=== PATIENT | male | born 1995 | race African-American/Black ===

== ENCOUNTER 2018-01-07 19:22 | Emergency (ER) | payer OTHER, SELFPAY ==
[2018-01-07] MEDS ORDERED: MORPHINE 4 MG/ML SYR ONE (19:27)
[2018-01-07] MEDS ORDERED: ONDANSETRON 4 MG/2 ML VIAL ONE (19:27)
[2018-01-07] MEDS ORDERED: HYDROCODONE/APAP 7.5/325 MG TAB ONE (20:39)
--- NOTE | 2018-01-07 20:42 | RAD REPORT ---
EXAM DESCRIPTION: RAD - Knee Left 3 View - 01/07/2018 8:07 pm CLINICAL HISTORY: Left knee pain status post injury FINDINGS: No fracture or dislocation is seen.
--- NOTE | 2018-01-07 21:26 | RAD REPORT ---
EXAM DESCRIPTION: Alvin Miranda Left01/07/2018 9:13 pm CLINICAL HISTORY: Left leg pain status post injury FINDINGS: A mildly to moderately comminuted displaced fracture involves the distal diaphysis of the left fibula No dislocation is seen
--- NOTE | 2018-01-07 21:26 | RAD REPORT ---
EXAM DESCRIPTION: RAD - Ankle Left 3 View -01/07/2018 8:07 pm CLINICAL HISTORY: Left ankle pain status post injury FINDINGS: A mildly to moderately comminuted displaced fracture involves the distal diaphysis of the left fibula No dislocation is seen
--- NOTE | 2018-01-07 21:38 | ER ---
Nurse's Notes [facility] Name: Josh Crocker Age: 22 yrs Sex: Male : 1995 Arrival Date: 01/07/2018 Time: 19:27 Bed 8 Private MD: Diagnosis: Displaced comminuted fracture of shaft of left fibula-Distal Presentation: 01/07 19:20 Presenting complaint: EMS states: that pt was playing football and someone fell on his left ankle. A bystander from the [employer] reduced ankle on scene due to no pulse. Pt lower leg is currently in splint. Transition of care: patient was not received from another setting of care. Onset of symptoms was January 07, 2018 at 18:50. Initial Sepsis Screen: Does the patient meet any 2 criteria? No. Patient's initial sepsis screen is negative. Does the patient have a suspected source of infection? No. Patient's initial sepsis screen is negative. Care prior to arrival: IV initiated. 20 GA, in the left antecubital area. 19:20 Method Of Arrival: EMS: [facility] 19:20 Acuity: FAITH 2 Historical: - Allergies: 19:39 No Known Allergies; fc - Home Meds: 19:39 None [Active]; fc - PMHx: 19:39 None; fc - PSHx: 19:39 None; fc - Immunization history:: Last tetanus immunization: unknown. - Social history:: Smoking status: Patient/guardian denies using tobacco, Patient/guardian denies using alcohol, street drugs. Screenin:36 Abuse screen: Denies threats or abuse. Denies injuries from another. Nutritional bp screening: No deficits noted. Tuberculosis screening: No symptoms or risk factors identified. Fall Risk None identified. Assessment: 19:31 General: Appears in no apparent distress. uncomfortable, slender, Behavior is calm, bp cooperative, appropriate for age, RECD 22YO BM VIA EMS S/P SPORTS INJURY. LEFT ANKLE DEFORMITY AFTER FOOTBALL TACKLE. REDUCED IN FIELD BY ON-SITE EMS. LEFT FOOT NEUROVASCULAR INTACT, ABLE TO MOVE DIGITS. Pain: Complains of pain in left medial ankle. Neuro: Level of Consciousness is awake, alert, obeys commands, Oriented to person, place, time, situation, Appropriate for age. Cardiovascular: No deficits noted. Respiratory: Airway is patent Respiratory effort is even, unlabored, Respiratory pattern is regular, symmetrical. GI: No deficits noted. : No signs and/or symptoms were reported regarding the genitourinary system. EENT: No deficits noted. Derm: No deficits noted. Musculoskeletal: Circulation, motion, and sensation intact. Range of motion: limited in left ankle Bony deformity noted of left medial ankle. 20:14 Reassessment: XRAY COMPLETE, RESULTS PENDING. PT REMAINS NEUROVASCULAR INTACT. bp 22:16 Reassessment: PT D/C HOME WITH FAMILY VIA CRUTCHES, DX WITH LEFT FIBULA COMMINUTED bp FRACTURE. Vital Signs: 19:20 BP 127 / 87; Pulse 98; Resp 18; Temp 98.1(O); Pulse Ox 100% on R/A; Weight 90.72 kg fc (R); Height 6 ft. 3 in. (190.50 cm) (R); Pain 7/10; 20:00 BP 125 / 75; Pulse 93; Resp 16; Pulse Ox 97% ; bp 22:00 BP 136 / 76; Pulse 81; Resp 16; Pulse Ox 99% ; bp 19:20 Body Mass Index 25.00 (90.72 kg, 190.50 cm) ED Course: 19:27 Patient arrived in ED. em1 19:28 Alexy Carlton PA is PHCP. cp 19:28 Ancelmo Lu MD is Attending Physician. cp 19:30 Sebastian Faith, CHRISTIAN is Primary Nurse. bp 19:34 Maintain EMS IV. Dressing intact. Good blood return noted. Site clean \T\ dry. Gauge \T\ bp site: 20 GAUGE LEFT AC. 19:36 Patient has correct armband on for positive identification. Bed in low position. Call bp light in reach. Side rails up X2. 19:39 Triage completed. fc 20:00 Arm band placed on. bp 20:08 XRAY Ankle LEFT 3 view In Process Unspecified. EDMS 20:08 XRAY Knee LEFT 3 view In Process Unspecified. EDMS 21:11 X-ray completed. Portable x-ray completed in exam room. Patient tolerated procedure ag1 well. 21:11 XRAY Tib Fib LEFT In Process Unspecified. EDMS 21:30 Orthoglass splint: Posterior short lleg splint applied on left leg. bp 22:17 No provider procedures requiring assistance completed. IV discontinued, intact, bp bleeding controlled, No redness/swelling at site. Pressure dressing applied. Administered Medications: 19:34 Drug: morphine 4 mg Route: IVP; Site: left antecubital; fc 20:37 Follow up: Response: Pain is decreased bp 19:34 Drug: Zofran 4 mg Route: IVP; Site: left antecubital; fc 20:37 Follow up: Response: Pain is decreased bp 20:45 Drug: Hydrocodone-Acetaminophen (7.5 mg-325 mg) 1 tabs Route: PO; bp 21:01 Follow up: Response: Pain is decreased bp Outcome: 21:37 Discharge ordered by MD. cp 22:18 Discharged to home with crutches, with family. bp 22:18 Condition: stable 22:18 Discharge instructions given to patient, Instructed on discharge instructions, follow up and referral plans. medication usage, crutch walking, Demonstrated understanding of instructions, follow-up care, medications, crutch walking, Prescriptions given X 2. 22:20 Patient left the ED. bp Signatures: Dispatcher [employer] EDMS Ro Nicholas RN RN Ciro Yarbrough em1 Avelina Howard ag1 Alxey Carlton, ALBERTO PA Sebastian Carson, RN RN bp
--- NOTE | 2018-01-07 21:38 | EDPHYS ---
Physician Documentation [facility] Name: Josh Crocker Age: 22 yrs Sex: Male : 1995 Arrival Date: 01/07/2018 Time: 19:27 Bed 8 Private MD: ED Physician Ancelmo Lu HPI: 01/07 19:35 This 22 yrs old Black Male presents to ER via EMS with complaints of injury to left cp ankle. 19:35 The patient presents with decreased range of motion, an injury, pain, that is acute, cp swelling, tenderness. The complaints affect the lateral aspect of left calf and left lateral ankle. Context: The problem was sustained at a sports field or court, resulted from another player landing on left ankle and lower leg. Onset: The symptoms/episode began/occurred just prior to arrival. Associated signs and symptoms: Pertinent negatives numbness. Treatment prior to arrival includes: splinting the affected extremity. Historical: - Allergies: 19:39 No Known Allergies; fc - Home Meds: 19:39 None [Active]; fc - PMHx: 19:39 None; fc - PSHx: 19:39 None; fc - Immunization history:: Last tetanus immunization: unknown. - Social history:: Smoking status: Patient/guardian denies using tobacco, Patient/guardian denies using alcohol, street drugs. ROS: 19:40 Constitutional: Negative for body aches, chills, fever, poor PO intake. cp 19:40 Eyes: Negative for injury, pain, redness, and discharge. cp 19:40 ENT: Negative for drainage from ear(s), ear pain, sore throat, difficulty swallowing, difficulty handling secretions. 19:40 Neck: Negative for pain with movement, pain at rest, stiffness, bony tenderness. 19:40 Cardiovascular: Negative for chest pain. 19:40 Respiratory: Negative for cough, shortness of breath, wheezing. 19:40 Abdomen/GI: Negative for abdominal pain, nausea, vomiting, and diarrhea, constipation. 19:40 Back: Negative for pain at rest, pain with movement. 19:40 MS/extremity: Positive for injury or acute deformity, ecchymosis, pain, swelling, tenderness, of the lateral aspect of left calf and left ankle, Negative for paresthesias. 19:40 All other systems are negative. Exam: 19:48 Constitutional: The patient appears in no acute distress, alert, awake, non-toxic, well cp developed, well nourished, uncomfortable. 19:48 Head/Face: Normocephalic, atraumatic. cp 19:48 Eyes: Periorbital structures: appear normal, Pupils: equal, round, and reactive to light and accomodation, Extraocular movements: intact throughout, Conjunctiva: normal, no exudate, no injection, Sclera: no appreciated abnormality, Lids and lashes: appear normal, bilaterally. 19:48 ENT: External ear(s): are unremarkable, Nose: is normal, Mouth: Lips: moist, Oral mucosa: pink and intact, moist, Posterior pharynx: is normal, airway is patent, no erythema, no exudate, Voice: is normal. 19:48 Neck: ROM/movement: is normal, is supple, without pain, no range of motions limitations, no nuchal rigidity. 19:48 Chest/axilla: Inspection: normal, Palpation: is normal, no crepitus, no tenderness. 19:48 Cardiovascular: Rate: normal, Rhythm: regular, Pulses: Pulses are 2+ in left dorsalis pedis artery. Heart sounds: murmur, not appreciated, rub, not appreciated, gallop, not appreciated. 19:48 Respiratory: the patient does not display signs of respiratory distress, Respirations: normal, no use of accessory muscles, no retractions, no splinting, no tachypnea, labored breathing, is not present, Breath sounds: are clear throughout, no decreased breath sounds, no stridor, no wheezing. 19:48 Abdomen/GI: Inspection: abdomen appears normal, Palpation: abdomen is soft and non-tender, in all quadrants. 19:48 Back: pain, is absent, ROM is normal. 19:48 Musculoskeletal/extremity: Extremities: grossly normal except: noted in the lateral aspect of left calf and left ankle: decreased ROM, ecchymosis, pain, swelling, tenderness. 19:48 Neuro: Sensation: no obvious gross deficits. Vital Signs: 19:20 BP 127 / 87; Pulse 98; Resp 18; Temp 98.1(O); Pulse Ox 100% on R/A; Weight 90.72 kg fc (R); Height 6 ft. 3 in. (190.50 cm) (R); Pain 7/10; 20:00 BP 125 / 75; Pulse 93; Resp 16; Pulse Ox 97% ; bp 22:00 BP 136 / 76; Pulse 81; Resp 16; Pulse Ox 99% ; bp 19:20 Body Mass Index 25.00 (90.72 kg, 190.50 cm) fc MDM: 19:34 Patient medically screened. cp 21:33 Data reviewed: vital signs, nurses notes, radiologic studies, plain films, and as a cp result, I will discharge patient. Test interpretation: by ED physician or midlevel provider: plain radiologic studies. Counseling: I had a detailed discussion with the patient and/or guardian regarding: the historical points, exam findings, and any diagnostic results supporting the discharge/admit diagnosis, radiology results, the need for outpatient follow up, a orthopedic surgeon, to return to the emergency department if symptoms worsen or persist or if there are any questions or concerns that arise at home. Response to treatment: the patient's symptoms have markedly improved after treatment, and as a result, I will discharge patient. 01/07 19:30 Order name: XRAY Ankle LEFT 3 view; Complete Time: 21:28 cp 01/07 19:30 Order name: XRAY Knee LEFT 3 view; Complete Time: 21:28 cp 01/07 20:10 Order name: XRAY Tib Fib LEFT; Complete Time: 21:28 cp 01/07 19:30 Order name: IV; Complete Time: 19:35 cp 01/07 21:26 Order name: Crutches; Complete Time: 22:20 cp 01/07 21:26 Order name: Splint - Long Leg: Posterior w/ Stirrup; Complete Time: 22:20 cp Administered Medications: 19:34 Drug: morphine 4 mg Route: IVP; Site: left antecubital; fc 20:37 Follow up: Response: Pain is decreased bp 19:34 Drug: Zofran 4 mg Route: IVP; Site: left antecubital; fc 20:37 Follow up: Response: Pain is decreased bp 20:45 Drug: Hydrocodone-Acetaminophen (7.5 mg-325 mg) 1 tabs Route: PO; bp 21:01 Follow up: Response: Pain is decreased bp Disposition: 01/08 01:29 Co-signature as Attending Physician, Ancelmo Lu MD. ma2 Disposition: 01/07/18 21:37 Discharged to Home. Impression: Displaced comminuted fracture of shaft of left fibula - Distal. - Condition is Stable. - Discharge Instructions: Tibial and Fibular Fracture, Adult. - Prescriptions for Ibuprofen 800 mg Oral Tablet - take 1 tablet by ORAL route every 8 hours As needed take with food; 30 tablet. Tylenol- Codeine #3 300-30 mg Oral Tablet - take 2 tablets by ORAL route every 6 hours As needed; 20 tablet. - Medication Reconciliation Form, Thank You Letter, Antibiotic Education, Prescription Opioid Use form. - Follow up: Private Physician; When: Orthopedist, next 2-3 days for distal fibula fracture; Reason: Recheck today's complaints. - Problem is new. - Symptoms have improved. Signatures: Dispatcher [employer] EDRo Ramirez RN RN Alexy Wyman PA PA cp Peltier, Brian, RN RN bp Ancelmo Lu MD MD ma2
== END 2018-01-07 22:20 | disposition home or self-care (01) ==
LOC: ER 19:22
DX: S82.452A Displaced comminuted fracture of shaft of left fibula, initial encounter for closed fracture (principal); Y93.61 Activity, american tackle football; Y92.321 Football field as the place of occurrence of the external cause; Y99.9 Unspecified external cause status
CPT/HCPCS: 96374; 96375; 99284; J2405